=== PATIENT | female | born 1945 | race Caucasian/White ===

== ENCOUNTER 2017-02-05 22:44 | Emergency (ER) | payer MEDICARE, OTHER ==
[~2017-02-05] VITALS: Ht 172.7 cm; Wt 68.0 kg
[~2017-02-05 22:44] MED LIST: ASPI81CH43 PO; [UNRECOGNIZED DRUG - CODE] PO
[2017-02-05 23:00] VITALS: BP 150/88
== END 2017-02-06 04:37 | disposition left against medical advice (07) ==
LOC: ER 22:47
DX: R51 Headache (principal); M54.2 Cervicalgia; W18.39XA Other fall on same level, initial encounter; Y93.89 Activity, other specified; Y92.098 Other place in other non-institutional residence as the place of occurrence of the external cause; Y99.8 Other external cause status; Z53.21 Procedure and treatment not carried out due to patient leaving prior to being seen by health care provider
CPT/HCPCS: 70450; 72125